=== PATIENT | male | born 2000 | race Caucasian/White ===

== ENCOUNTER 2022-11-22 10:58 | Emergency (ER) | payer OTHER ==
[2022-11-22 11:34] VITALS: BP 140/90; PULSE 67; RESP 20; TEMP 97.9
[2022-11-22] MEDS ORDERED: ACETAMINOPHEN 325 MG TABLET (FP) PO ONE (11:53)
[2022-11-22] MEDS ORDERED: ACETAMINOPHEN 325 MG TABLET (FP) ONE (11:59)
[2022-11-22 13:03] LABS: INR 1.09 (0.83-1.09); PROTHROMBIN TIME (PATIENT) 12.6 SEC (9.7-13.0)
[2022-11-22 13:04] LABS: HEMATOCRIT 44.2 % (35.4-49); HEMOGLOBIN 15.2 G/dL (11.7-16.9); MCH 30.2 pg (25.7-33.7); MCHC 34.4 g/dl (32.0-35.9); MEAN CELL VOLUME 87.7 fl (80-96); MEAN PLT VOLUME 7.3 fl (7.5-11.1); PLATELET COUNT 215.7 10^3/uL (134-434); RBC 5.04 10^6/uL (4.00-5.60); RDW 13.8 % (11.9-15.9); WHITE BLOOD COUNT 8.9 10^3/uL (4.0-10.8)
[2022-11-22 13:11] LABS: ANION GAP 10 MMOL/L (8-16); BLOOD UREA NITROGEN 18.7 mg/dl (7-18); CALCIUM 10.3 mg/dl (8.5-10.1); CHLORIDE 101 mmol/L (98-107); CO2 29 mmol/L (21-32); CREATININE 1.1 mg/dl (0.6-1.3); GLUCOSE,RANDOM 85 mg/dl (74-106); POTASSIUM 4.7 mmol/L (3.5-5.1); SODIUM 140 mmol/L (136-145)
[2022-11-22 13:43] LABS: PLATELET ESTIMATE ADEQUATE
== END 2022-11-22 15:23 | disposition home or self-care (01) ==
LOC: FER 10:58
DX: R07.89 Other chest pain (principal)
CPT/HCPCS: 36415; 71046-TC-FY; 71275-TC; 80048; 84484; 85027; 85379; 85610; 93005; 99285-25; Q9967